=== PATIENT | female | born 2000 | race American Indian/Alaskan Native ===

== ENCOUNTER 2022-05-08 01:28 | Inpatient (IN) | payer MEDICAID ==
[2022-05-08] MEDS ORDERED: oxyCODONE /ACETAMINOPHEN 5-325MG TAB PO ONE (03:07)
[2022-05-08] MEDS ORDERED: ACETAMINOPHEN 325 MG TAB PO PRN (04:10)
[2022-05-08] MEDS ORDERED: BUTORPHANOL 2 MG/1 ML INJ IV PRN (04:10)
[2022-05-08] MEDS ORDERED: MINERAL OIL 30 ML ORAL LIQD PO PRN (04:10)
[2022-05-08] MEDS ORDERED: fentaNYL 100 MCG/2 ML INJ IV PRN (04:10)
[2022-05-08] MEDS ORDERED: AMPICILLIN/NS 2 GM/100 ML 2 GM/100 ML BAG IV ONE (04:30)
[2022-05-08] MEDS: LACTATED RINGERS 1,000 ML IV SCH ×2 (05:04→05:35)
[2022-05-08 05:23] LABS: Hematocrit 30.5 % (30.3-42.9); Hemoglobin 9.9 gm/dl (10.1-14.3); Mean Corpuscular HGB Conc 32 % (30-34); Mean Corpuscular Volume 80 fl (79-97); Platelet Count 323 K/mm3 (140-440); Red Blood Count 3.83 M/mm3 (3.65-5.03); Red Cell Distribution Width 16.3 % (13.2-15.2)
[2022-05-08] MEDS ORDERED: ePHEDrine SULFATE 50 MG/1 ML INJ ONE (05:26)
--- NOTE | 2022-05-08 06:10 | Anesthesia Consultation ---
Anesthesia Consult and Med Hx Date of service: 05/08/22 - Airway Anesthetic Teeth Evaluation: Good ROM Head & Neck: Adequate Mental/Hyoid Distance: Adequate Mallampati Class: Class II Intubation Access Assessment: Probably Good - Pulmonary Exam CTA: Yes - Cardiac Exam Cardiac Exam: RRR - Pre-Operative Health Status ASA Pre-Surgery Classification: ASA2 Proposed Anesthetic Plan: Epidural - Pulmonary Hx Asthma: No - Cardiovascular System Hx Hypertension: No - Central Nervous System Hx Seizures: No Hx Psychiatric Problems: No - Endocrine Hx Renal Disease: No Hx Hypothyroidism: No Hx Hyperthyroidism: No - Hematic Hx Anemia: No Hx Sickle Cell Disease: No - Other Systems Hx Alcohol Use: Yes Hx Obesity: Yes
[2022-05-08] MEDS ORDERED: ePHEDrine SULFATE 50 MG/1 ML INJ IV PRN (07:00)
--- NOTE | 2022-05-08 07:55 | Progress Note ---
Labor Epidural - Labor Epidural Start Time: 07:20 Stop Time: 07:38 Performed by:: MARQUIS GONZALES Procedure: Combined Spinal-Epidural Patient is requesting epidural for labor and pain. H&P, labs were reviewed. Patient ID confirmed, all questions and concerns were answered, and consent was signed. Timeout was performed at bedside. Patient in sitting position. Sterile prep and drape was performed. 3ml of 1% lidocaine skin wheal at L3- L4 interspace. 17-gauge Tuohy epidural needle was advanced to loss of resistance with saline technique cm x 2 attempts. Unsuccessful attempt if spinal. Epidural catheter advanced to 15 centimeters. Negative aspiration, Precedex 40 mg in epidural space. test dose 3ml 1.5% Lidocaine with epi - negative. Sterile dressing applied. Patient tolerated procedure.
[2022-05-08] MEDS ORDERED: fentaNYL-BUPIV 2 MCG/ML-0.125% 200 MCG/100 ML BAG EPIDURAL SCH (08:30)
[2022-05-08] MEDS ORDERED: NALOXONE 0.4 MG/1 ML INJ IV PRN (08:30)
--- NOTE | 2022-05-08 08:56 | History and Physical Report ---
History of Present Illness Date of examination: 05/08/22 Date of admission: 05/08/22 04:56 Chief complaint: contractions History of present illness: Pt is a 21 year old primigravida FAHAD 05/11/22 at 39w4d who presents with regular painful contractions and cervical dilation of 4 cm. She has had care at [facility] since 13 wks complicated by Hepatitis C positive s/p ID referral, glucose intolerance, and GBS positive status. Past History Past Medical History: asthma Past Surgical History: no surgical history Family/Genetic History: other (asthma ) Social history: no significant social history - Obstetrical History Expected Date of Delivery: 05/11/22 Actual Gestation: 39 Week(s) 4 Day(s) : 1 Medications and Allergies Allergies Allergy/AdvReac Type Severity Reaction Status Date / Time No Known Allergies Allergy Unverified 05/08/22 01:51 Active Meds: Active Medications Acetaminophen (Acetaminophen 325 Mg Tab) 650 mg PO Q4H PRN PRN Reason: Pain, Mild (1-3) Butorphanol Tartrate (Butorphanol 2 Mg/1 Ml Inj) 1 mg IV Q2H PRN PRN Reason: Pain, Moderate(4-6) LABOR PAIN Ephedrine Sulfate (Ephedrine Sulfate 50 Mg/1 Ml Inj) 10 mg IV Q2M PRN PRN Reason: Hypotension Fentanyl (Fentanyl 100 Mcg/2 Ml Inj) 100 mcg IV Q2H PRN PRN Reason: Pain,Severe (7-10) LABOR PAIN Lactated Ringer's (Lactated Ringers) 1,000 mls @ 125 mls/hr IV DIRECT BRANDON Last Admin: 05/08/22 05:35 Dose: 125 mls/hr Ampicillin Sodium (Ampicillin/Ns 1 Gm/50 Ml) 1 gm in 50 mls @ 100 mls/hr IV Q4H BRANDON; Protocol Fentanyl/Bupivacaine/Sodium Chlor (Fentanyl-Bupiv 2 Mcg/Ml-0.125%) 200 mcg in 100 mls @ 12 mls/hr EPIDURAL TITR BRANDON; Protocol Mineral Oil (Mineral Oil 30 Ml Oral Liqd) 30 ml PO QHS PRN PRN Reason: Constipation Naloxone HCl (Naloxone 0.4 Mg/1 Ml Inj) 0.2 mg IV Q5MIN PRN PRN Reason: Respiratory sedation Review of Systems All systems: negative - Vital Signs Vital signs: Vital Signs Temp 98.1 F 05/08/22 01:56 Temp Pulse Resp BP Pulse Ox 98.1 F 90 111/55 99 05/08/22 01:56 05/08/22 08:54 05/08/22 08:53 05/08/22 08:54 - Physical Exam Breasts: Positive: deferred Abdomen: Positive: soft (gravid, obese ) Uterus: Positive: enlarged (gravid ) Extremities: Positive: edema (trace ) - Obstetrical FHR: auscultation normal Uterine Contraction Monitor Mode: External Cervical Dilatation: 9 Cervical Effacement Percentage: 100 station: -1 Uterine Contraction Pattern: Regular Uterine Tone Measurement Phase: Resting Uterine Contraction Intensity: Strong/Firm Results Result Diagrams: 05/08/22 04:55 Abnormal lab results 05/08/22 Range/Units 04:55 WBC 14.7 H (4.5-11.0) K/mm3 Hgb 9.9 L (10.1-14.3) gm/dl MCH 26 L (28-32) pg RDW 16.3 H (13.2-15.2) % All other labs normal. Assessment and Plan A: IUP at 39w4d Transitional labor Hepatitis C GBS Positive P: Admit to labor and delivery AROM- clear fluid Ampicillin for GBS prophylaxis Routine intrapartum care
[2022-05-08] MEDS ORDERED: AMPICILLIN/NS 1 GM/50 ML 1 GM/50 ML BAG IV SCH (09:00)
[2022-05-08] MEDS ORDERED: METHYLERGONOVINE MALEATE 0.2 MG/ML VIAL IM ONE ×2 (09:29→09:30)
[2022-05-08] MEDS: OXYTOCIN DRIP 30 UNITS/500 ML BAG IV SCH ×2 (09:30→10:24)
[2022-05-08] MEDS ORDERED: LIDOCAINE (2%) 20 MG/1 ML VIAL 20 ML MDV INFILTRATI ONE (09:38)
[2022-05-08] MEDS ORDERED: LIDOCAINE (2%) 20 MG/1 ML VIAL 50 ML MDV INFILTRATI ONE (09:40)
--- NOTE | 2022-05-08 10:08 | Procedure Note ---
OB Delivery Note - Delivery Date of Delivery: 05/08/22 Surgeon: DAPHNE MOSCOSO Estimated blood loss: other (600 mL) - Vaginal Delivery presentation: vertex Delivery position: OA Intrapartum events: PROM->1hr before delivery, decreased FHT variability, uterine atony Delivery induction: none Delivery augmentation: rupture of membranes, pitocin Delivery monitor: external FHT, external uterine Route of delivery: Delivery placenta: spontaneous Delivery cord: nuchal cord (loose, reduced ) Episiotomy: none Delivery laceration: other (Bilateral periurethral, Right periurethral repaired with 3-0 Vicryl in a standard fashion) Delivery repair: vicryl Anesthesia: local, epidural - Infant A at 1 minute: 8 at 5 minutes: 9 Infant Gender: Female (3130g (6lb 14oz) @ 0925 am)
[2022-05-08] MEDS ORDERED: LANOLIN/ZINC/DIMETHICONE (LANSINOH) 7 GM TP PRN ×2 (14:43)
[2022-05-08] MEDS ORDERED: diphenhydrAMINE 25 MG CAP PO PRN (14:43)
[2022-05-08] MEDS ORDERED: MAGNESIUM HYDROXIDE (MOM) ORAL LIQD UDC PO PRN (14:43)
[2022-05-08] MEDS ORDERED: ONDANSETRON 4 MG/2 ML INJ IV PRN (14:43)
[2022-05-08] MEDS ORDERED: WITCH HAZEL/ GLYCERIN PAD TP PRN (14:43)
[2022-05-08] MEDS ORDERED: HYDROcodone/ACETAMINOPHEN 5-325 MG TAB PO PRN (14:43)
[2022-05-08] MEDS ORDERED: PROMETHAZINE 25 MG TAB PO PRN (14:43)
[2022-05-08] MEDS ORDERED: PROMETHAZINE 25 MG RECT SUPP PR PRN (14:43)
[2022-05-08] MEDS ORDERED: BENZOCAINE/MENTHOL 20/0.5% TOP SPRAY 56 GM TP PRN (14:43)
[2022-05-08] MEDS ORDERED: miSOPROStol 200 MCG TAB PR PRN (15:00)
--- NOTE | 2022-05-08 18:07 | Post Anesthesia Evaluation ---
- Post Anesthesia Evaluation Patient Participated: Yes Airway Patent: Yes Stable Respiratory Function: Yes Nausea/Vomiting: No Temp > 96.8F: Yes Pain Manageable: Yes Adequeate Hydration: Yes Anesthesia Complications: No Block Receding Appropriately: Yes Patient on Ventilator: No
[2022-05-08] MEDS ORDERED: FERROUS SULFATE 325 MG TAB PO SCH (22:00)
[2022-05-09] MEDS: IBUPROFEN 600 MG TAB PO SCH ×2 (00:05→14:05)
[2022-05-09 04:28] LABS: Hematocrit 28.2 % (30.3-42.9); Hemoglobin 8.8 gm/dl (10.1-14.3)
[2022-05-09] MEDS ORDERED: MEASLES, MUMPS & RUBELLA 12,500 UNIT/0.5 ML VACCINE SUB-Q ONE (06:00)
[2022-05-09] MEDS ORDERED: TETANUS,DIPH,PERTUSS(ACELL) VACCINE 0.5 ML SYRINGE IM ONE (06:00)
[2022-05-09 09:00] VITALS: BP 116/83
--- NOTE | 2022-05-09 09:33 | Discharge Summary ---
Providers - Providers Date of Admission: 05/08/22 04:56 Date of discharge: 05/09/22 Attending physician: EAGLE MERIDA 05/08/22 14:43 Consult to [facility] [CONS] Routine Reason For Exam: assistance with , SNS Primary care physician: EAGLE MERIDA Hospitalization Reason for admission: active labor Delivery: Discharge diagnosis: IUP at term delivered Hospital course: The patient was admitted in active labor. She had a successful vaginal delivery. Her course was uncomplicated. Condition at discharge: Good Disposition: 01 HOME / SELF CARE / HOMELESS - Discharge Diagnoses (1) Vaginal delivery Status: Acute Plan - Discharge Medications Prescriptions: Ibuprofen [Motrin] 800 mg PO Q8HR PRN #30 tablet PRN Reason: Pain , Severe (7-10) HYDROcodone/APAP 5-325 [[place] 5/325] 1 each PO Q6HR PRN #15 tablet PRN Reason: Pain - Provider Discharge Summary Activity: no sex for 6 weeks, no heavy lifting 4 weeks, no strenuous exercise Diet: routine Instructions: routine Additional instructions: [] Smoking cessation referral if applicable(refer to patient education folder for contact #) [] Refer to [facility] Booklet Call your doctor immediately for: * Fever > 100.5 * Heavy vaginal bleeding ( >1 pad per hour) * Severe persistent headache * Shortness of breath * Reddened, hot, painful area to leg or breast * Schedule visit in 4 weeks - Follow up plan
--- NOTE | 2022-05-09 09:33 | Progress Note ---
Assessment and Plan - Patient Problems (1) Vaginal delivery Current Visit: Yes Status: Acute Plan to address problem: Patient doing well Discharge home Subjective - Subjective Date of service: 05/09/22 Interval history: The patient is without any significant complaints. She reports that her lochia is decreasing. Patient reports: appetite normal, voiding normally, pain well controlled [place]: doing well Objective - Vital Signs Latest vital signs: Vital Signs Temp Pulse Resp BP BP Pulse Ox Pulse Ox 05/09/22 08:28 97.7 F 100 H 20 116/83 99 05/09/22 01:40 98.0 F 76 18 128/72 100 05/08/22 20:10 100 05/08/22 13:30 98.3 F 81 18 130/83 99 98 05/08/22 11:52 76 130/82 05/08/22 11:50 78 99 05/08/22 11:45 92 H 99 05/08/22 11:40 74 98 05/08/22 11:35 71 98 05/08/22 11:30 71 98 05/08/22 11:25 71 99 05/08/22 11:22 67 123/67 05/08/22 11:20 61 99 05/08/22 11:15 78 99 05/08/22 11:10 69 99 05/08/22 11:05 76 98 05/08/22 11:00 72 99 05/08/22 10:55 93 H 98 05/08/22 10:51 76 122/70 05/08/22 10:50 81 99 05/08/22 10:45 86 98 05/08/22 10:40 92 H 98 05/08/22 10:35 80 99 05/08/22 10:30 84 98 05/08/22 10:25 80 99 05/08/22 10:20 81 113/75 99 05/08/22 10:15 82 98 05/08/22 10:10 84 99 05/08/22 10:06 86 118/79 05/08/22 10:05 86 99 05/08/22 10:00 87 99 05/08/22 09:55 85 100 05/08/22 09:50 83 116/58 100 05/08/22 09:45 84 100 05/08/22 09:40 80 99 05/08/22 09:35 76 111/56 99 Intake and Output 05/08/22 05/09/22 05/09/22 22:59 06:59 14:59 Intake Total 360 Output Total 1550 Balance -1550 360 Intake: Oral 360 Output: Urine 1550 Void 1550 Other: Total, Intake Amount 120 Total, Output Amount 700 # Voids Indwelling Catheter 1 Void 1 1 - Exam Uterus: Present: normal, firm - Labs Labs: Abnormal lab results 05/09/22 Range/Units 04:14 Hgb 8.8 L (10.1-14.3) gm/dl Hct 28.2 L (30.3-42.9) %
== END 2022-05-09 18:05 | disposition home or self-care (01) | DRG 774 ==
LOC: APU 01:28 → TRG 01:28 → LD 04:56 → OB 14:30
PROVIDERS: ADMIT Obstetrics & Gynecology; ATTEND Obstetrics & Gynecology
PROC: 10E0XZZ Delivery of Products of Conception, External Approach (ICD-10-PCS; principal; 2022-05-08)
PROC: 10907ZC Drainage of Amniotic Fluid, Therapeutic from Products of Conception, Via Natural or Artificial Opening (ICD-10-PCS; 2022-05-08)
PROC: 0UQMXZZ Repair Vulva, External Approach (ICD-10-PCS; 2022-05-08)
PROC: 3E0R3BZ Introduction of Anesthetic Agent into Spinal Canal, Percutaneous Approach (ICD-10-PCS; 2022-05-08)
PROC: 00HU33Z Insertion of Infusion Device into Spinal Canal, Percutaneous Approach (ICD-10-PCS; 2022-05-09)
PROC: 3E0134Z Introduction of Serum, Toxoid and Vaccine into Subcutaneous Tissue, Percutaneous Approach (ICD-10-PCS; 2022-05-09)
DX: O42.02 Full-term premature rupture of membranes, onset of labor within 24 hours of rupture (principal); O98.42 Viral hepatitis complicating childbirth; Z20.822 Contact with and (suspected) exposure to COVID-19; O99.824 Streptococcus B carrier state complicating childbirth; O99.52 Diseases of the respiratory system complicating childbirth; B19.20 Unspecified viral hepatitis C without hepatic coma; O99.214 Obesity complicating childbirth; O69.81X0 Labor and delivery complicated by cord around neck, without compression, not applicable or unspecified; O76 Abnormality in fetal heart rate and rhythm complicating labor and delivery; O62.2 Other uterine inertia; O71.82 Other specified trauma to perineum and vulva; Z3A.39 39 weeks gestation of pregnancy; Z37.0 Single live birth; Z23 Encounter for immunization
CPT/HCPCS: 36415; 85014; 85018; 85027; 86850; 86900; 86901; G0378; J3490; J0290; J2210; J2590; J7120; U0003